=== PATIENT | male | born 1950 | race Caucasian/White ===

== ENCOUNTER → 2020-06-10 15:10 | Outpatient (CLI) | payer MEDICARE, OTHER, SELFPAY ==
[2020-06-13 07:22] LABS: COVID19 Sendout Not Detected (Not Detect)
== END ==
PROVIDERS: Visit Provider Physician Assistant
DX: Z01.818 Encounter for other preprocedural examination (principal)
CPT/HCPCS: 87635

== ENCOUNTER 2020-06-13 06:13 | Day surgery (SDC) | payer MEDICARE, OTHER, SELFPAY ==
[2020-06-06 12:36] VITALS: BMI 31.2
[2020-06-13] VITALS (22 sets, daily range): BP systolic 109–168; BP diastolic 55–88; PULSE 57–90; RESP 11–24; TEMP 36.1–37.2; O2SAT 90–100; BMI 30.9
--- NOTE | 2020-06-13 | DI.RAD.S_ITS ---
PROCEDURE: XR HIP W PEL IF DONE LT 2V INDICATIONS: LEFT MARIANA ANTERIOR TECHNIQUE: 6 view(s) of the hip acquired. COMPARISON: None. FINDINGS: Bones: 6 intraoperative fluoroscopy images demonstrate left hip total arthroplasty, with hardware components in expected positions. The hip joint appears congruent. The visualized bony structures appear intact. Soft tissues: Overlying postoperative changes are noted. No suspicious soft tissue densities. IMPRESSION: Left hip total arthroplasty. Dictated by: Agusto Lewis M.D. on 06/13/2020 at 13:53 Approved by: Agusto Lewis M.D. on 06/13/2020 at 13:54
--- NOTE | 2020-06-13 | DI.RAD.S_ITS ---
PROCEDURE: XR HIP W PEL IF DONE LT 2V INDICATIONS: ANTERIOR TOTAL LEFT HIP TECHNIQUE: AP pelvis with lateral view(s) of the left hip(s). COMPARISON: [facility], , XR HIP W PEL IF DONE LT 2V, 06/13/2020, 10:14. FINDINGS: Bones: No fractures or dislocations. Pelvic ring appears intact. No suspicious bony lesions. Lower lumbar spondylosis and mild right hip joint degeneration. Expected postoperative alignment of left hip arthroplasty. Hardware appears intact. Associated postsurgical sequela and soft tissue gas noted. IMPRESSION: Expected postoperative alignment of left hip arthroplasty. Dictated by: Edison Torres M.D. on 06/13/2020 at 13:54 Approved by: Edison Torres M.D. on 06/13/2020 at 13:55
[2020-06-13] MEDS: LACTATED RINGERS 1,000 ML 100 ML IV ×2 (06:50→11:46)
[2020-06-13] MEDS: CELECOXIB 200 MG CAPSULE PO (06:53)
[2020-06-13] MEDS: PREGABALIN 75 MG CAPSULE PO (06:53)
[2020-06-13] MEDS: ACETAMINOPHEN 325 MG TABLET 975 MG PO (06:53)
[2020-06-13] MEDS: VANCOMYCIN 1,000 MG/200 ML PIGGYBACK 200 MG IV (07:02)
--- NOTE | 2020-06-13 07:32 | SUR.OPER ---
Supine on padded [place] table with bilateral legs secured in padded positioning boots and suspended in positioning spars, operative leg in traction per surgeon. Head on one pillow. Arm on non-operative side secured on padded armboard <90 degrees abduction. Arm on operative side padded and resting across chest then secured with tape over sheet. Padded perineal post in place per surgeon.
--- NOTE | 2020-06-13 07:50 | P.OP_ITS ---
Operative Date/Time/Diagnoses Date of procedure: 06/13/20 Time of procedure: 07:59 Pre-op diagnosis: left hip OA Post-op diagnosis: same Procedure & Clinicians Procedure: Left total hip arthroplasty anterior approach Same procedure as scheduled: Yes Indications: The patient has had progressively worsening left hip pain with radiographic changes consistent with arthritis. Non-operative management has failed and the patient has requested total hip replacement. The risks, benefits and alternatives to surgery were discussed with the patient prior to proceeding. Risks discussed included, but were not limited to, failure to relieve pain, leg length discrepancy, dislocation, stiffness, infection, nerve damage, deep venous thrombosis, pulmonary embolism, stroke, coma, heart attack, permanent paralysis and , as well as the potential need for eventual revision of the prosthetic. Surgeon: Caity Ma Packaging Design Engineer: Stevan Treadwell Anesthesia Type: Spinal and Sedation Operative Notes Findings: 1. severe left hip osteoarthritis 2. moderate cystic changes and tearing along the lateral aspect of the acetabulum in the region of the rectus with a fairly large degenerative cyst 3. Significant labral tear. 4. Very tight and sclerotic femoral canal with hard bone. Closure Type: primary Prosthetic devices, grafts, tissues, transplants, or devices: Ma and Nephew size 58 mm cup with a neutral 36 mm poly liner, one 15 mm screw, size 6 standard offset anthology, 36 by -3 mm Oxinium head Estimated Blood Loss (mL): 300 Blood products transfused: none Procedure in detail: The patient was brought to the operating room. Patient was carefully positioned in the supine position. Time-out was performed and antibiotics were given. Anesthesia was induced. He was positioned in the on the table in order to allow hyperextension of the hip. The left lower extremity was prepped and draped in a standard sterile fashion. An anterior left hip incision was made 1 fingerbreadth lateral to the anterior superior iliac spine and extended distally towards the greater trochanter. Dissection was carried out through skin and subcutaneous tissues. The skin and subcutaneous tissues were carefully injected with Lidocaine with epi. Superficial hemostasis was achieved. The fascia over the tensor fascia alina was defined and incised with a knife. Two Allis clamps were used to grasp the fascia. The Rabia was placed. Tensor fascia alina was retracted laterally. A gelpi retractor was placed. Dissection was carried out down along the neck. The circumflex vessels were carefully identified and cauterized with the Aqua Mantis. There was good visualization of the femoral neck. A Cobra was placed superior to the neck and the gluteus fibers were carefully stripped from that superior aspect of the capsule. He had atypical findings with a significant degenerative cyst along his lateral capsule and on the superior lateral aspect of the hip rim. It was in the region where the fibers of the rectus insert along the capsule. A 2nd retractor was placed along the inferior aspect of the neck. The rectus insertion along the capsule was partially released. The large degenerative cyst was carefully removed and debrided. There was significant thickening and significant scarring of the capsule. Capsule was meticulously freed from the hip abductors. A 3rd retractor that was then gently placed over the rim of the acetabulum under the rectus. Capsule was carefully incised and released from the intertrochanteric line circumferentially superior to the mid sagittal line and inferiorly to the mid sagittal line until the lesser troc hanter was palpable. A tag stitch was placed both in the superior and inferior limb of the capsular insertion. Along the acetabulum capsule was also released up to the mid sagittal 12:00 position. A portion of the labrum was resected. A saw was used to perform an osteotomy at the level of the intertrochanteric line and the junction of the superior femoral neck leaving approximately 1 finger phong ath of residual inferior neck above the lesser trochanter. A 2nd cut was made along the femoral neck at the base of the head and a napkin ring of neck was removed. There was moderate bleeding which was controlled with the Aquamantys. A meticulously checked the capsular release he had an extremely tight hip. Corkscrew was placed in the femoral head and the head was removed with difficulty. Retractors were then repositioned around the acetabulum. Residual labrum was resected and additional osteophytes were removed. A reamer that was 4 mm below the templated size was placed by hand in the acetabulum and it was reamed to centralize the acetabulum. It was then reamed up to 2 under the templated size and fluoroscopy was brought in to confirm the position of the reaming and depth of reaming. I reamed 1 under the anticipated size. Retraction was somewhat difficult but there was ultimately excellent visualization of the acetabulum and the reaming cavity. A trial cup was placed and noted that it was appropriately sized and fluoroscopy confirmed position and depth. The component was open and inserted without difficulty fluoroscopic imaging was used to confirm that the cup had been ad equately seated and was well positioned. It was further stabilized with a single screw. Neutral trial liner was placed. The cup was tested and noted to be stable. Attention was then directed to the femur. The femur was gently hyperextended additional capsular release was performed as needed in order to allow adequate visualization of the proximal femur with elevation of the femur. Patient was placed in a hyperextended slightly adducted position with maximum external rotation. Box osteotome was used to check for any residual neck as well as sclerotic bone along the trochanter. He had extremely hard bone. I had to specifically removed residual bone with a large [place] and then carefully attempt to find the canal with the canal finer. He had very dense bone and it was difficult to pass the canal finer. [place] pepper was placed in the femur. It required multiple passes to work the bone in order to get the even the chili pepper into the canal. Placing the size 1 broach was difficult. At that point I checked with x-ray both the straight AP as well as internal and external rotation x-rays to make sure there was no malpositioning of the component or specific impingement. We further looked at his plain x-rays he was noted to have a significant anterior bow and a very small canal and some sclerosis in the canal. The canal was then meticulously broached up to a size 5. Additional broaching was performed. Canal finder was used to determine the alignment of the canal and position. Size 1 broach was placed. The canal was then appropriately broached up to the templated size as long as there was adequate stability of the broach and serial advancement of the broach without excessive impingement. Specific attention was directed at avoiding varus attempting to direct the dis monalisa aspect of the broach more anteriorly and avoiding excessive anteversion. Trial reduction showed acceptable range of motion, good stability, no posterior impingement, mu-ism of leg length and appropriate lateral shuck. A very specifically checked to make sure that the broach was reducible and it had been adequately seated. It was felt that it would be helpful if we could tamping down a few additional mm. The radiograph suggested that it was well centralized in the canal. Clinically it was felt that there was a chance that it was stuck in a combination of the anterior bow and distally. Thought about distally reaming to make sure that it had not been potted. The 3 2 guidewire would not pass through the canal without difficulty and it was felt that there was good fixation of the broach and it was reducible and there was mu-ism of leg lengths with adequate offset and it was reasonable to proceed with broaching. I was able to get down the size 6 broach. It had good rotational and axial stability. It was reducible with a -3 neck length. Marcaine and Exparel were injected. The stem was placed without difficulty. Final x-ray showed acceptable overall position, length, and no evidence of the femoral fracture. Final head was placed. Wound was meticulously irrigated with normal saline. The hip was reduced and additional Exparel and Marcaine were injected. The leg lengths and the offset appeared acceptable. The capsule was closed with interrupted nonabsorbable sutures. The fascia of the tensor was closed with interrupted and running Vicryl. No drain was placed. Any tensor fascia alina muscle that appeared to be contused or injured which was a minimal amount was carefully resected. Capsule around the tensor was injected with Exparel and Marcaine. The skin was closed with barbed stitches for the subcutaneous tissue and skin. We also used surgical glue. The wound was dressed sterilely. Brief Betadine soak was also used and was meticulously irrigated with normal saline. Patient was transferred to recovery room in satisfactory condition. Complications: none Post-operative Condition: stable Disposition: Acute Care Plan for aftercare: The patient will be maintained on a standard total hip replacement protocol with weight bearing as tolerated and anterior hip precautions. The patient will receive Aspirin and sequential compression devices for DVT prophylaxis. The patient will be discharged home when safe for the home environment.
--- NOTE | 2020-06-13 07:50 | PM.PREOP ---
Pre-operative Note COVID-19 COVID-19 status: Negative Interval Note History & Physical reviewed/Exam performed by Physician: Yes Changes to H&P: No
[2020-06-13] MEDS: CEFAZOLIN 2 GM/100 ML FROZ.PIGGY IV ×3 (08:05→23:46)
[2020-06-13] MEDS: BUPIVACAINE 0.25% W/ EPI 30 ML VIAL 60 ML INJ (08:27)
[2020-06-13] MEDS: BUPIVACAINE LIPOSOME 266 MG/20 ML VIAL INJ (08:28)
[2020-06-13] MEDS: TRANEXAMIC ACID 1,000 MG VIAL 1000 MG INJ ×2 (08:28→10:18)
--- NOTE | 2020-06-13 13:31 | CM.DANOTE ---
DCP: Case received, EMR reviewed. Patient has not yet arrived to the floor, is in recovery. DCP assessment initiated with information currently available in H&P, and EMR. Patient is a 69 year old male who admitted early this morning to the care of the orthopedic team. PCP: Dr. Pak. Payer: confirmed: Medicare/[facility]. Patient came to hospital for a surgical procedure. He is having left hip surgery. He is in recovery at this time. Looking at notes, patient has been active at baseline and uses no DME supplies. He resides in [place] with his spouse, Anita. P: DCP to continue to follow. Check in with patient for any needs, and collaborate with the P.T. team as well. Linda Ornelas RN/Coding Educator
[2020-06-13] MEDS: fentaNYL 100 MCG/2 ML INJ IV ×2 (13:33→13:48)
[2020-06-13] MEDS: ONDANSETRON 4 MG/2 ML INJ IV (13:33)
[2020-06-13] MEDS: HYDROMORPHONE 2 MG INJ 0.5 MG IV (13:58)
[2020-06-13] MEDS: OXYCODONE/ACETAMINOPHEN 5/325 TABLET 1 TAB PO (14:18)
[2020-06-13] MEDS: LACTATED RINGERS 1,000 ML 125 ML IV ×2 (15:00→23:46)
--- NOTE | 2020-06-13 15:28 | PC.NURSE ---
Post-op: Patient arrived to room 215 at 1445. Awake and alert, oriented X3. Dressing to L hip C/D/I. CMS+, PP+. Pain 7/10 in L hip/back, ice pack to L hip. Denies nausea. IVF infusing per order, site in L forearm/wrist WNL. SCD's placed on BLE's. Given water and a snack. Oriented to room and call light, encouraged to make needs known. Call light in reach, bed alarm on. at bedside.
[2020-06-13] MEDS: ACETAMINOPHEN 325 MG TABLET 650 MG PO ×2 (15:37→20:24)
[2020-06-13] MEDS: IBUPROFEN 400 MG TABLET PO ×2 (15:37→20:25)
[2020-06-13] MEDS: HYDROMORPHONE 4 MG TABLET PO (16:56)
[2020-06-13] MEDS: LOVASTATIN 20 MG TABLET 40 MG PO (16:58)
[2020-06-13] MEDS: hydroCHLOROthiazide 12.5 MG CAPSULE PO (17:03)
[2020-06-13] MEDS: lisinopriL 20 MG TABLET PO (17:10)
[2020-06-13] MEDS: METFORMIN HCL 500 MG TABLET 1000 MG PO (17:10)
--- NOTE | 2020-06-13 18:11 | PC.NURSE ---
Addendum entered by Kelly Avila R.N. 06/13/20 23:18: Earlier this evening, patient ambulated in hallway to rm 217 and back to room, gait steady although he said my left leg feels longer now? Staff observed difference in leg length when he was walking. VS remain stable. Flomax has default time in JAN of Has voided x 1 tonight, reported feeling like he emptied his bladder. Reported increased pain to LLE post-ambulation, medicated with oxycodone 5 mg per request. Pt now dozing, fall precautions in place, alarm active for safety. Original Note: Post-op notes: Joni brought to rm 215 prior to 1500. Since here he has been awake, oriented x 3 & situation. His VS are stable, slightly hypertensive. Reporting pain 7/10 to middle lower back with no relief provided by IV pain med or Percocet given in PACU. I notified surgery department, Dr Ma ordered for me to give patient Dilaudid 4 mg PO x 1 which I did. Patient repositioned a few times to see if that would help his back pain. Anesthesiologist up to see patient & write orders. Pt reporting that pain med & repositioning helped lower his pain to 3/10. After finishing meal, patient was observed sleeping. 2L O2 sat remains 93-94% while asleep, VS remain stable. Dr Ma in room to see patient.
[2020-06-13] MEDS: DOCUSATE 100 MG CAPSULE PO (20:24)
[2020-06-13] MEDS: TAMSULOSIN 0.4 MG CAPSULE PO (20:24)
[2020-06-13] MEDS: ASPIRIN EC 81 MG TABLET PO (20:25)
[2020-06-13] MEDS: buPROPion SR 100 MG TAB PO (20:27)
[2020-06-13] MEDS: INSULIN NPH 100 UNIT/ML VIAL 22 UNIT SUBCUT (21:55)
[2020-06-13] MEDS: OXYCODONE IR 5 MG TABLET PO (21:56)
[2020-06-14] VITALS (7 sets, daily range): BP systolic 92–148; BP diastolic 50–72; PULSE 81–98; RESP 15–18; TEMP 36.7–37.7; O2SAT 92–100
[2020-06-14] MEDS: IBUPROFEN 400 MG TABLET PO ×6 (01:09→20:35)
[2020-06-14] MEDS: OXYCODONE IR 5 MG TABLET PO ×3 (01:11→20:35)
--- NOTE | 2020-06-14 01:44 | PC.NURSE ---
Addendum entered by Jane Adkins R.N. 06/14/20 05:30: States pain is only 4/10 this morning and requested only scheduled Ibuprofen. Original Note: Patient seen and assessed. Is alert and oriented. Breath sounds CTA with RA sat of 95%. HRR. Denies nausea. BT present but hypoactive; denies passing flatus. Voided on previous shift; denies dysuria, frequency or urgency. Is able to turn himself in bed. Aquacel dressing to left anterior hip is CDI. Reportedly when up is using walker and 1 assist; reports he is weak in left leg. Reports some numbness around dressing but otherwise CMS is intact. States left hip pain is currently 6/10 so medicated with Oxycodone + scheduled Ibuprofen. Is wearing bilateral calf SCD's. Fall risk score is high and bed alarm is activated.
[2020-06-14 05:39] LABS: Hematocrit 37.3 % (41-53); Hemoglobin 12.9 g/dL (13.5-17.5)
[2020-06-14] MEDS: METFORMIN HCL 500 MG TABLET 1000 MG PO ×2 (08:25→17:10)
[2020-06-14] MEDS: ACETAMINOPHEN 325 MG TABLET 650 MG PO ×3 (08:26→20:35)
[2020-06-14] MEDS: ASPIRIN EC 81 MG TABLET PO ×2 (08:27→20:35)
[2020-06-14] MEDS: buPROPion SR 100 MG TAB 200 MG PO (08:28)
[2020-06-14] MEDS: DOCUSATE 100 MG CAPSULE PO ×2 (08:28→20:35)
[2020-06-14] MEDS: INSULIN NPH 100 UNIT/ML VIAL 22 UNIT SUBCUT ×2 (08:29→20:39)
[2020-06-14] MEDS: TAMSULOSIN 0.4 MG CAPSULE PO (08:33)
--- NOTE | 2020-06-14 09:56 | PT.IIE ---
Current Diagnoses Unilateral primary osteoarthritis, left hip (06/13/20) Surgery Performed Operation Date: 06/13/20 07:45 Actual Procedures p Total Hip Arthroplasty/Anterior Approach(Left) - Caity Ma MD Surgical History (Last Updated 06/06/20 @ 13:18 by Kecia Hernández, RN) History of vasectomy (Acute) Hx of cholecystectomy (Acute) Hx of detached retina repair (Acute ~2015) Hx of LASIK (Acute) Medical History (Last Updated 06/06/20 @ 13:15 by Kecia Hernández RN) Anxiety (Acute) Benign essential tremor (Acute) Diabetes (Acute) HLD (hyperlipidemia) (Acute) HTN (hypertension) (Acute) Kidney stones (Acute) Osteoarthritis (Acute) Physical Therapy Inpatient Evaluation/Re-Eval M1 PT/OT-IP Prior Functional Status Start: 06/14/20 13:10 Freq: NEEDED Status: Active Protocol: Document 06/14/20 09:56 AB (Rec: 06/14/20 13:24 AB [id number]) Medical Review Prior Functional Status Medical History Reviewed Yes Communication able to make needs known Mobility and Gait pt stated that he is independent with all mobilities and ambulation without AD Social History Household Members spouse Living Arrangements Apartment/Condo Number of Floors (Floors) Two Floors Number of Stairs To Enter/Railing? pt stays on main level of the house: has a chair lift to get to 2nd floor has 2 steps without rails but has a R side bar against the door Home Environment High Toilet,Walk in Shower, Built-In Shower Seat Home Equipment Front Wheel Walker,Straight Cane,Grab Bars Near Toilet, Grab Bars In Shower Additional Social History Comment pt works as a preschool principal M2 PT-IP Current Condition Start: 06/14/20 13:10 Freq: NEEDED Status: Active Protocol: Document 06/14/20 09:56 AB (Rec: 06/14/20 13:24 AB [id number]) Physical Therapy Current Condition Current Condition Evaluation Date 06/14/20 Treatment Diagnosis s/p L MARIANA anterior approach; difficulty in walking Onset Date 06/13/20 Precautions Anterior Hip Precautions No Hip Extension,No Hip External Rotation Weight Bearing Status Weight Bearing Status Weight Bear as Tolerated Allowed Weight Bearing Amount (enter % LLE WBAT or #) (%) M3 PT-IP Subjective Start: 06/14/20 13:10 Freq: NEEDED Status: Active Protocol: Document 06/14/20 09:56 AB (Rec: 06/14/20 13:24 AB [id number]) Subjective Physical Therapy Visit Type Type Initial Evaluation Visit Start Time 09:56 Visit Stop Time 10:38 Total Visit Minutes 42 Number of METEOROLOGY TEACHER Visits 0 Physical Therapy Visit Comments Patient Comments pt is agreeable to do PT Therapy Pain Assessment Pain When Pain Assessed At Rest Location Left Hip Intensity 7 Scale Used Numeric (0 - 10) Pain Management Techniques Apply Cold,Re-positioning, Timing of Activity with Medications M4 PT-IP Mobility and Gait Start: 06/14/20 13:10 Freq: NEEDED Status: Active Protocol: Document 06/14/20 09:56 AB (Rec: 06/14/20 13:24 AB [id number]) PT-Bed Mobility Assessment Rolling Level of Assist Maximal Assistance,1 Person Assistance Supine to Sit Supine to Sit Maximum Assistance,1 Person Assistance PT-Transfer Assessment Sit to and From Stand Sit to and from Stand Moderate Assistance,1 Person Assistance,Use of Upper Extremities Equipment Transfer Assistive Device Gait Belt,Front Wheeled Walker Orthotic/Prosthetic Devices or Brace: No Transfers Transfer Destination Chair Transfer Technique ambulated using FWW Transfer Ability Level of Assist Minimal Assistance,Moderate Assistance,1 Person Assistance ,Use of Upper Extremities Comments Mobility Comments pt educated with anterior L MARIANA precautions. initially c/ o back pain but after mobilizing stated that pain transferred to the L hip. BP in supine: 108/60. completed supine to sit max A and max cues. pt was able to sit on EOB SBA. BP: 116/56 completed sit to stand mod A and cues and ambulated towards the chair min to mod A and cues for L quad activation. pt with increase steps width: increase L hip abduction during standing and ambulation BP after ambulation/transfer: 89/38. checked BP again to confirm: 84/50. pt with c/o slight lightheadedness. positioned pt on chair. nurse in room with pt. call light and table placed within reach. Gait Assessment Gait Gait Assistance Required: Minimum Assistance,Moderate Assistance Distance (Feet) 15 Able to Maintain Weight Bearing Status Yes During Gait Assistive Devices Assistive Device Gait Belt,Front Wheeled Walker Orthotic/Prosthetic Devices or Brace: No Gait Deviations General Gait Pattern Antalgic,Decreased Stride Length,Decreased Feet Clearance Factors Limiting Gait Function Factors Limiting Gait Function Decreased Activity Tolerance, Decreased Strength,Limited Range of Motion,Pain,Poor Balance,Poor Safety Awareness PT-Balance Assessment Sitting Balance and Reactions Static Sitting Balance Ability Good Dynamic Sitting Balance Ability Good Standing Balance and Reactions Static Standing Balance Ability Fair Dynamic Standing Balance Ability Fair Device Used FWW M5 PT-IP Objective Assessments Start: 06/14/20 13:10 Freq: NEEDED Status: Active Protocol: Document 06/14/20 09:56 AB (Rec: 06/14/20 13:24 AB [id number]) Orientation Orientation/Cognition Level of Alertness Alert Orientation Name,Place,Situation Gross Range of Motion Lower Extremity ROM Assessment Within Functional Limits Strength Lower Extremity Strength Assessment Left Impaired Hip 3+/5 Knee 4-/5 Coordination Assessment Gross Coordination Gross Coordination WNL Sensation Assessment Sensation Gross Sensation WNL Muscle Tone Muscle Tone WNL Yes M6 PT-IP Treatment Start: 06/14/20 13:10 Freq: NEEDED Status: Active Protocol: Document 06/14/20 09:56 AB (Rec: 06/14/20 13:24 AB [id number]) Physical Therapy Treatment Exercises Exercises Heel Slides Education Education Provided Precautions,Weight Bearing Status,Post-Op Packet,Safety M7 PT-IP Assessment and Plan Start: 06/14/20 13:10 Freq: NEEDED Status: Active Protocol: Document 06/14/20 09:56 AB (Rec: 06/14/20 13:24 [id number]) PT Summary Assessment and Plan Potential Rehabilitation Potential Good Status of Condition at Evaluation Evolving Summary Impairments Pain,ROM,Strength,Balance, Coordination,Sensation,Tone, Cognition,Bed Mobility, Transfers,Gait,Activity Tolerance Assessment Summary pt was unable to tolerate much activity today with c/o increase pain and slight headedness after transfers with BP: 84/50. d/c plan depending on progress and will conduct caregiver training when appropriate and will also complete stair climbing prior to d/c. pt stated that he is scheduled for outpt PT. Goals Bed Mobility Goal Independent Transfer Goal Independent,Front Wheeled Walker Gait Goal Independent,Front Wheel Walker Gait Distance 200 Other Goals up/down 2 steps R bar SBA Days to Meet Goals 5 Frequency of Treatment Frequency Of Treatment Twice a Day Treatment Plan Physical Therapy Treatment Plan Bed Mobility Training,Transfer Training,Gait Training, Therapeutic Exercise,Balance Retraining,Post Op Education, Discharge Planning,Hot or Cold Pack,Neuromuscular Re-ed, Coordination Retraining,Manual Therapy Other Recommendations and Next Treatment ambulation, stair climbing, Focus caregiver training Recommendations To Nursing Amount of Assist Needed 1 Person Assist Discharge Recommendations PT Discharge Recommendations Home with Assistance, Outpatient PT Transportation Needs at Discharge Private Vehicle
[2020-06-14] MEDS: LACTATED RINGERS 1,000 ML 125 ML IV ×3 (11:05→22:48)
[2020-06-14] MEDS: SODIUM CHLORIDE 0.9% 1,000 ML 1000 ML IV (11:05)
--- NOTE | 2020-06-14 13:05 | CM.DPC ---
DCP Cont: Per Ortho PA, pt may be able to d/c today pending PT. Per PT, pt having some bp issues during eval and some pain management issues. Plan for CG training this afternoon to determine spouse ability to provide enough assist and not recommending d/c today and pending his pain then outpt PT vs HH. Plan: SW to follow this afternoon after PT CG training towards determining plan of home with outpt PT vs HH and likely d/c tomorrow due to bp and pain issues. TATI Marie
[2020-06-14] MEDS: SODIUM CHLORIDE 0.9% 1,000 ML 999 ML IV (13:58)
--- NOTE | 2020-06-14 14:54 | PC.NURSE ---
Pt up chair with 2 person assist with P.T. Pt stated he felt a little bit light headed during the transfer. 1104 bp was 99/72, 1215 bp rechecked 79/42, Bolus of 1L LR hung and infused, Stevan MG notified, 300 EBL during surgery yesterday, BP meds due at 1700 and were placed on hold. Last narcotic was Oxycodone 5mg at 0111 this am. Pt was given scheduled Ibuprofen and Tylenol. Pt now resting in bed bp 120/53. Pt is alert and oriented. Pt was unable to void and was bladder scanned for 401 and straight cathed for 650cc of urine.
--- NOTE | 2020-06-14 15:22 | PT-IP ANOTE ---
checked with nurse and stated that pt still has low BP and is receiving bolus IV. checked with nurse regarding pt again after ~1 hour. nurse stated that pt's BP is better. checked with pt and pt refused PT. spouse in room. informed regarding pt's mobility level of assistance and agreed to do caregiver training tomorrow. set up caregiver training tomorrow 06/15 @ 1000am.
[2020-06-14] MEDS: buPROPion SR 100 MG TAB PO (20:36)
[2020-06-15] MEDS: IBUPROFEN 400 MG TABLET PO ×3 (00:40→08:20)
[2020-06-15 01:03] VITALS: BP 141/68; PULSE 94; RESP 16; TEMP 36.4; O2SAT 98
--- NOTE | 2020-06-15 02:39 | PC.NURSE ---
Addendum entered by Jane Adkins R.N. 06/15/20 05:36: States pain only 1/10 but after getting up to bathroom pain is at 6/10; too early to give Oxycodone so medicated with po Dilaudid. Addendum entered by Jane Adkins R.N. 06/15/20 03:34: Up to bathroom with walker and 1 assist. Able to get left leg out of bed this time but still needing help to get it back into bed. States pain is 4/10 so medicated with Oxycodone. Original Note: Patient was seen and assessed at 0040. Is alert and oriented. Breath sounds CTA with RA sat of 98%. HRR. Denies nausea. BT hypoactive and states he still has not passed any flatus. Voiding without dysuria, frequency or urgency. Is able to turn self in bed but needs help to lift left leg in/out of bed. Walks with walker and 1 assist and is weak in left LE and unsteady at times. Refusing to wear bilateral calf SCD's so reminded to ankle wave when awake; verbalizes understanding. Aquacel dressing to left anterior hip is CDI. States he still has some numbness around dressing on left hip. Denies pain. Fall risk score is high and bed alarm is activated.
[2020-06-15] MEDS: OXYCODONE IR 5 MG TABLET PO (03:31)
[2020-06-15] MEDS: HYDROMORPHONE 2 MG TABLET PO ×2 (05:32→09:46)
[2020-06-15 05:56] VITALS: BP 162/70; PULSE 91; RESP 16; TEMP 36.3; O2SAT 98
--- NOTE | 2020-06-15 07:41 | PM.DS.1 ---
History of Present Illness History of Present Illness Date Patient Seen: 06/15/20 Time Patient Seen: 07:45 Chief complaint: OPB Narrative: Pino was admitted with severe left hip osteoarthritis. He was taken the operating room and underwent a left total hip arthroplasty. He tolerated the procedure well. Discharge Providers Provider Discharge Date: 06/15/20 Primary care physician: Nestor Pak MD Consults: 06/13/20 06:00 Consult to Anesthesiology Routine Comment: Consulting Provider: Anesthesiologist Reason for consultation: Regional block for post operative pain control 06/13/20 14:48 Consult to Discharge Planning Routine Comment: Consult to Physical Therapy Evaluate & Treat Comment: Physician Instructions: post op MARIANA protocol Consult to Respiratory Therapy Evaluate & Treat Comment: Physician Instructions: Evaluate and treat Discharge provider: Ciaty Ma MD Summary Hospital Course Discharge Diagnosis: Left hip arthritis left total hip arthroplasty Hospital Course: He was taken the operating room he underwent a left total hip arthroplasty. He tolerated the procedure without difficulty. He was noted to be on Flomax preoperatively and have some slight difficulty voiding. He required catheterization with an I and O cath in the operating room and also postoperatively. He was able to void spontaneously without difficulty after several catheterizations. His postoperative pain was adequately controlled with oral medications. He was mobilized with physical therapy and was felt to be safe for discharge. Status at Discharge Cognitive/behavioral status at discharge: oriented Functional status at discharge: uses cane/walker Overall status at discharge: patient is progressing back to baseline Time Spent with Patient Time spent: Less than 30 minutes Exam Vital Signs (past 8 hours): - 06/15/20 01:03 06/15/20 05:56 Temperature 97.5 F L 97.3 F L Pulse Rate 94 H 91 H Respiratory Rate 16 16 Blood Pressure 141/68 H 162/70 H Pulse Oximetry 98 98 Oxygen Delivery Method Room Air Oxygen Flow Rate 0 Narrative Exam Narrative: Alert and oriented HEENT is benign, dressing is benign, mild pain with range of motion in the left hip, calf soft bilaterally Objective Labs Result Diagrams: 06/14/20 05:17 Discharge Assessment & Plan Assessment and Plan Plan of Treatment: Improving after left total hip arthroplasty. Plan is to discharge to home with outpatient physical therapy. Discharge Plan Discharge Plan Patient Disposition: Home Discharge comment: DC home today if cleared by PT Discharge Med Rec/Prescriptions Prescriptions: New aspirin 81 mg Tablet,Delayed Release (Dr/Ec) 81 mg PO BID Qty: 60 RF: 0 ibuprofen 400 mg Tablet 400 mg PO Q4HR Qty: 60 RF: 0 oxycodone 5 mg Tablet 5 mg PO Q3HR PRN (Reason: Pain, Moderate (4-6)) Qty: 40 RF: 0 Continued lisinopril-hydrochlorothiazide 20-12.5 mg Tablet 1 tab PO QPM RF: 0 lovastatin 40 mg Tablet 40 mg PO QPM RF: 0 acetaminophen [Tylenol Arthritis Pain] 650 mg Tablet Extended Release 1,300 mg PO DAILY RF: 0 bupropion HCl 100 mg Tablet 100 mg PO SEEINSTR RF: 0 tamsulosin 0.4 mg Capsule 0.4 mg PO DAILY RF: 0 metformin 1,000 mg Tablet 1,000 mg PO BID RF: 0 Novolin N NPH U-100 Insulin 100 unit/mL Suspension 22 unit SUBCUT BID RF: 0 Discontinued ibuprofen-diphenhydramine cit [Advil PM] 200-38 mg Tablet 2 cap PO BEDTIME RF: 0 Follow up/Referrals: Nestor Pak MD [Primary Care Provider] - Caity Ma MD [Physician] - (2 weeks) Discharge Orders: Discharge (Order); Ordered 06/15/20 Ordered By: Caity Ma Provider Discharge Instructions Diet: Diet as Tolerated Activity: WBAT, Anterior hip precautions Cold/Heat Therapy: ice as needed Skin/Wound/Dressing Care Report to your healthcare provider any signs of infection, such as:: chills, fever, increased pain, unusual drainage and unusual redness Dressing: keep clean and dry Visit Report/Discharge Packet Instructions: DI for Hip Replacement Stand Alone Forms: Surgery Discharge Discharge Data Primary Care Provider: Nestor Pak Attending Provider: Caity Ma Quality VTE Deep Vein Thrombosis/Pulmonary Embolism Present on Admission: No
[2020-06-15] MEDS: ACETAMINOPHEN 325 MG TABLET 650 MG PO (08:17)
[2020-06-15] MEDS: METFORMIN HCL 500 MG TABLET 1000 MG PO (08:17)
[2020-06-15] MEDS: ASPIRIN EC 81 MG TABLET PO (08:18)
[2020-06-15] MEDS: TAMSULOSIN 0.4 MG CAPSULE PO (08:19)
[2020-06-15] MEDS: polyethylene glycoL 3350 17 GM POWD.PACK PO (08:19)
[2020-06-15] MEDS: DOCUSATE 100 MG CAPSULE PO (08:19)
[2020-06-15] MEDS: buPROPion SR 100 MG TAB 200 MG PO (08:19)
[2020-06-15] MEDS: INSULIN NPH 100 UNIT/ML VIAL 22 UNIT SUBCUT (08:23)
[2020-06-15 09:00] VITALS: BP 140/66; PULSE 94; RESP 16; TEMP 36.8; O2SAT 96
--- NOTE | 2020-06-15 10:25 | PT.IPTN ---
Current Diagnoses Unilateral primary osteoarthritis, left hip (06/13/20) Surgery Performed Operation Date: 06/13/20 07:45 Actual Procedures p Total Hip Arthroplasty/Anterior Approach(Left) - Caity Ma MD Physical Therapy Treatment Note M2 PT-IP Current Condition Start: 06/14/20 13:10 Freq: NEEDED Status: Discharge Protocol: Document 06/14/20 09:56 AB (Rec: 06/14/20 13:24 AB [id number]) Physical Therapy Current Condition Current Condition Evaluation Date 06/14/20 Treatment Diagnosis s/p L MARIANA anterior approach; difficulty in walking Onset Date 06/13/20 Precautions Anterior Hip Precautions No Hip Extension,No Hip External Rotation Weight Bearing Status Weight Bearing Status Weight Bear as Tolerated Allowed Weight Bearing Amount (enter % LLE WBAT or #) (%) M3 PT-IP Subjective Start: 06/14/20 13:10 Freq: NEEDED Status: Discharge Protocol: Document 06/15/20 10:25 AB (Rec: 06/15/20 12:24 AB [id number]) Subjective Physical Therapy Visit Type Type Treatment Note Visit Start Time 10:25 Visit Stop Time 11:16 Total Visit Minutes 51 Number of WATER TAXI OPERATOR Visits 0 Physical Therapy Visit Comments Patient Comments pt is agreeable to do PT. spouse in room for caregiver training Therapy Pain Assessment Pain When Pain Assessed During Mobility Pain Present Pain Present Pain Reported Location Left Hip Intensity 7 Scale Used Numeric (0 - 10) Pain Management Techniques Apply Cold,Distraction,Re- positioning,Timing of Activity with Medications M4 PT-IP Mobility and Gait Start: 06/14/20 13:10 Freq: NEEDED Status: Discharge Protocol: Document 06/15/20 10:25 AB (Rec: 06/15/20 12:24 AB [id number]) PT-Bed Mobility Assessment Supine to Sit Supine to Sit Standby Assistance Sit to Supine Sit to Supine Minimal Assistance,1 Person Assistance Scooting Scooting to Edge of Bed Standby Assistance PT-Transfer Assessment Sit to and From Stand Sit to and from Stand Contact Guard Assistance,1 Person Assistance,Use of Upper Extremities Equipment Transfer Assistive Device Gait Belt,Front Wheeled Walker Orthotic/Prosthetic Devices or Brace: No Transfers Transfer Destination Toilet Transfer Technique ambulated using FWW Transfer Ability Level of Assist Contact Guard Assistance,1 Person Assistance,Use of Upper Extremities Comments Mobility Comments pt sitting on chair and requesting to use the toilet. spouse in room for caregiver training. educated spouse on how to use safety belt and how to assist pt. spouse was able to put safety belt on with pt's assist, assisted pt with sit to stand and pt ambulated towards the toilet using FWW CGA. cued on L quads activation. educated spouse on pt's hip precautions and assistance level. spouse understood. pt completed sit to to stand from the toilet using grab bar CGA. pt ambulated in room with spouse assisting CGA and completed ~ 40 ft. pt ambulated towards the bed and bed mobility training completed. pt performed sit to supine min A with LLE elevation to bed and cues for techniques and SBA for supine to sit. educated spouse on how to assist pt if needed. pt ambulated towards the chair using FWW CGA. educated pt and spouse on stair climbing. pt has a vertical bar against the door on the R and stated that he has the furnace on L side. pt completed up/down step stool and R side bar simulating steps at home and completed with CGA. completed again with spouse assisting. pt and spouse were able to demonstrate safety with mobility. pt agreed to sit up on chair. reviewed HEP. call light and table placed within reach. pt and spouse has no other concerns. Gait Assessment Gait Gait Assistance Required: Contact Guard Assist Distance (Feet) 40 Able to Maintain Weight Bearing Status Yes During Gait Assistive Devices Assistive Device Gait Belt,Front Wheeled Walker Orthotic/Prosthetic Devices or Brace: No Gait Deviations General Gait Pattern Antalgic,Decreased Stride Length,Decreased Feet Clearance Factors Limiting Gait Function Factors Limiting Gait Function Decreased Activity Tolerance, Decreased Strength,Difficulty Following Directions,Pain,Poor Balance,Poor Safety Awareness Stair Climbing Assessment Evaluation Level of Assist On Stairs Contact Guard Assistance Devices Stair Climbing Assistive Devices Right Railing Technique/Endurance Stair Climbing Direction Ascend and Descend Stair Climbing Technique Step to Step Number of Steps Climbed 1 Stair Climbing Set # Repetitions (reps) 2 Comments Stair Climbing Comments pls refer to mobility section for details M5 PT-IP Objective Assessments Start: 06/14/20 13:10 Freq: NEEDED Status: Discharge Protocol: Document 06/14/20 09:56 AB (Rec: 06/14/20 13:24 AB [id number]) Orientation Orientation/Cognition Level of Alertness Alert Orientation Name,Place,Situation Gross Range of Motion Lower Extremity ROM Assessment Within Functional Limits Strength Lower Extremity Strength Assessment Left Impaired Hip 3+/5 Knee 4-/5 Coordination Assessment Gross Coordination Gross Coordination WNL Sensation Assessment Sensation Gross Sensation WNL Muscle Tone Muscle Tone WNL Yes M6 PT-IP Treatment Start: 06/14/20 13:10 Freq: NEEDED Status: Discharge Protocol: Document 06/15/20 10:25 AB (Rec: 06/15/20 12:24 AB [id number]) Physical Therapy Treatment Education Education Provided Precautions,Safety M7 PT-IP Assessment and Plan Start: 06/14/20 13:10 Freq: NEEDED Status: Discharge Protocol: Document 06/15/20 10:25 AB (Rec: 06/15/20 12:24 AB [id number]) PT Summary Assessment and Plan Potential Rehabilitation Potential Good Summary Impairments Pain,ROM,Strength,Balance, Coordination,Sensation,Tone, Cognition,Bed Mobility, Transfers,Gait,Activity Tolerance Progress Towards Goals Slow Progress due to Pain Assessment Summary caregiver training completed and spouse was able to assist pt safety. pt is also set up for outpt PT. Goals Bed Mobility Goal Independent Transfer Goal Independent,Front Wheeled Walker Gait Goal Independent,Front Wheel Walker Gait Distance 200 Other Goals up/down 2 steps R bar SBA Days to Meet Goals 5 Frequency of Treatment Frequency Of Treatment Twice a Day Treatment Plan Physical Therapy Treatment Plan Bed Mobility Training,Transfer Training,Gait Training, Therapeutic Exercise,Balance Retraining,Post Op Education, Discharge Planning,Hot or Cold Pack,Neuromuscular Re-ed, Coordination Retraining,Manual Therapy Other Recommendations and Next Treatment ambulation, stair climbing, Focus caregiver training Recommendations To Nursing Amount of Assist Needed 1 Person Assist Discharge Recommendations PT Discharge Recommendations Home with Assistance, Outpatient PT Transportation Needs at Discharge Private Vehicle
--- NOTE | 2020-06-15 12:09 | PC.NURSE ---
Pt is dressed and ready for discharge home with Spouse. IV removed. Pt has been cleared by P.T. Went over d/c instructions with Pt and Spouse - discussed d/c meds, time of last dose, reviewed s/s of infection and when to call md. Pt to follow up as directed. Reminded Pt to follow his anterior hip precautions, drink plenty of fluids to prevent constipation or dehydration, consider a stool softener to assist with bm, and no driving while on narcotics. Pt denies further questions and was taken out via w/c by TECHNICAL CLERK to POV with Spouse and all belongings.
--- NOTE | 2020-06-15 12:48 | CM.DPC ---
DCP: continued. Case received, dc order to home noted. Discussed in Team Rounds. A check in now shows that pt did go home as planned at about 1200.
== END 2020-06-15 12:13 | disposition home or self-care (01) ==
LOC: OR 06:19 → AC 06:22
PROVIDERS: PCP Family Medicine; Referring Provider Orthopaedic Surgery; Visit Provider Orthopaedic Surgery
PROC: (CPT 27130; principal; 2020-06-13 07:45)
DX: M16.12 Unilateral primary osteoarthritis, left hip (principal); I10 Essential (primary) hypertension; E11.9 Type 2 diabetes mellitus without complications; Z79.84 Long term (current) use of oral hypoglycemic drugs
CPT/HCPCS: 27130; 36415; 73502; 76000; 82962; 85014; 85018; 97162; 97530; C1776; C9290; J0690; J1170; J2250; J2405; J2704; J3010